=== PATIENT | male | born 1945 | race Hispanic/Latino ===

== ENCOUNTER 2019-09-24 21:02 | Emergency (ER) | payer MEDICARE ==
--- NOTE | 2019-09-24 21:41 | Emergency Department Report ---
Blank Doc - Documentation Documentation: 74-year-old male that presents with right foot pain, redness, and swelling with history of diabetes This initial assessment/diagnostic orders/clinical plan/treatment(s) is/are subject to change based on patient's health status, clinical progression and re- assessment by fellow clinical providers in the ED. Further treatment and workup at subsequent clinical providers discretion. Patient/guardians urged not to elope from the ED as their condition may be serious if not clinically assessed and managed. Initial orders include: 1- Patient sent to MAIN ED for further evaluation and treatment 2- labs
[2019-09-24 22:07] LABS: Basophils % (Auto) 0.3 % (0.0-1.8); Eosinophils # (Auto) 0.2 K/mm3 (0.0-0.4); Eosinophils % (Auto) 2.2 % (0.0-4.3); Hematocrit 39.7 % (35.5-45.6); Hemoglobin 13.8 gm/dl (11.8-15.2); Lymphocytes # (Auto) 3.3 K/mm3 (1.2-5.4); Lymphocytes % (Auto) 48.1 % (13.4-35.0); Mean Corpuscular HGB Conc 35 % (32-34); Mean Corpuscular Volume 93 fl (84-94); Monocytes # (Auto) 0.7 K/mm3 (0.0-0.8); Monocytes % (Auto) 10.1 % (0.0-7.3); Platelet Count 249 K/mm3 (140-440); Red Blood Count 4.27 M/mm3 (3.65-5.03); Red Cell Distribution Width 14.7 % (13.2-15.2)
[2019-09-24 22:23] LABS: Alanine Aminotransferase 18 units/L (7-56); BUN/Creatinine Ratio 17; Blood Urea Nitrogen 19 mg/dL (9-20); Calcium 9.3 mg/dL (8.4-10.2); Hemolysis Index 6
[2019-09-24] MEDS ORDERED: levoFLOXacin 750 MG TAB PO ONE (23:52)
[2019-09-24] MEDS ORDERED: SULFAMETHOXAZOLE/TRIMETHOPRIM 800/160MG DS TAB PO ONE (23:52)
--- NOTE | 2019-09-24 23:54 | Emergency Department Report ---
HPI - General Chief Complaint: Extremity Injury, Lower Time Seen by Provider: 09/24/19 21:40 - HPI HPI: Room 3 The patient is 74-year-old male presenting with chief complaint of right foot erythema and swelling. The patient has a history of diabetes and neuropathy and states he does not feel pain in his foot. The patient states today when he went to apply his daily lotion to the right foot he noticed redness and a blister forming over one of his toes. Patient denies any known preceding trauma. Patient denies fever or pain. The patient states he last looked at his foot yesterday when he applied his lotion but yesterday his foot appeared normal Location: [See above] Duration: [See above] Quality: [See above] Severity: [See above] Timing: [See above] Context: [See above] Modifying factors: [See above] Associated signs and symptoms: [see above] ED Past Medical Hx - Past Medical History Previous Medical History?: Yes Hx Hypertension: Yes Hx Diabetes: Yes Additional medical history: High Cholesterol, Neuropathy, - Surgical History Past Surgical History?: Yes Hx Open Heart Surgery: Yes Additional Surgical History: Left great toe amputation, right 4th toe amputation - Family History Family history: no significant - Social History Smoking Status: Never Smoker Substance Use Type: None (denies illicit drug use) - Medications Home Medications: Home Medications Medication Instructions Recorded Confirmed Last Taken Type Ciprofloxacin HCl [Ciprofloxacin 500 mg PO Q12HR #20 tab 09/25/19 Unknown Rx TAB] Sulfamethoxazole/Trimethoprim 1 each PO BID #20 tablet 09/25/19 Unknown Rx [Bactrim DS TAB] ED Review of Systems ROS: Stated complaint: RIGHT FOOT INJURY/PAIN Other details as noted in HPI Constitutional: denies: fever Eyes: denies: eye pain ENT: denies: throat pain Respiratory: no symptoms reported Cardiovascular: denies: chest pain Endocrine: no symptoms reported Gastrointestinal: denies: abdominal pain Genitourinary: denies: dysuria Skin: rash Neurological: denies: headache Physical Exam - Physical Exam Vital Signs: Vital Signs 09/24/19 21:11 Temperature 98.4 F Pulse Rate 86 Respiratory 18 Rate Blood Pressure 178/54 O2 Sat by Pulse 96 Oximetry Physical Exam: GENERAL: The patient is well-developed well-nourished male sitting on stretcher not appearing to be in acute distress. [] HEENT: Normocephalic. Atraumatic. Extraocular motions are intact. Patient has moist mucous membranes. NECK: Supple. Trachea midline CHEST/LUNGS: There is no respiratory distress noted. HEART/CARDIOVASCULAR: Regular. There is no tachycardia. 2+ right DP SKIN: There is erythema of the distal right foot encompassing the middle toes. There is an intact blister overlying the third toe. There appears to be a callus of the sole of foot which could serve as a portal of entry NEURO: The patient is awake, alert, and oriented. The patient is cooperative. The patient has normal speech MUSCULOSKELETAL: There is no evidence of acute injury. ED Course Vital Signs 09/24/19 21:11 Temperature 98.4 F Pulse Rate 86 Respiratory 18 Rate Blood Pressure 178/54 O2 Sat by Pulse 96 Oximetry ED Medical Decision Making - Lab Data Result diagrams: 09/24/19 21:46 09/24/19 21:46 Laboratory Tests 09/24/19 09/24/19 09/24/19 21:46 21:46 21:46 WBC 6.8 RBC 4.27 Hgb 13.8 Hct 39.7 MCV 93 MCH 32 MCHC 35 H RDW 14.7 Plt Count 249 Lymph % (Auto) 48.1 H [place] % (Auto) 10.1 H Eos % (Auto) 2.2 Baso % (Auto) 0.3 Lymph # 3.3 [place] # 0.7 Eos # 0.2 Baso # 0.0 Seg Neutrophils % 39.3 L Seg Neutrophils # 2.7 VBG pH 7.379 Sodium 137 Potassium 4.2 Chloride 99.5 Carbon Dioxide 23 Anion Gap 19 BUN 19 Creatinine 1.1 Estimated GFR > 60 BUN/Creatinine Ratio 17 Glucose 211 H Calcium 9.3 Total Bilirubin 0.50 AST 27 ALT 18 Alkaline Phosphatase 84 Total Protein 7.6 Albumin 4.0 Albumin/Globulin Ratio 1.1 - Radiology Data Radiology results: report reviewed (right foot x-ray), image reviewed (right foot x-ray) interpreted by me: Right foot x-ray-no acute fracture seen [facility] [address] [place] [address] XRay Report Signed Patient: FLAKO MACK MR#: [id number] : 1945 Acct:[id number] Age/Sex: 74 / M ADM Date: 09/24/19 Loc: ED Attending Dr: Ordering Physician: PAPO CANTU MD Date of Service: 09/24/19 Procedure(s): XR foot 2V RT Accession Number(s): [id number] cc: APPO CANTU MD Fluoro Time In Minutes: Right foot 2 views INDICATION: Right foot pain IMPRESSION: Amputation of the fourth toe. No convincing of osteomyelitis identified on limited views. Signer Name: Moises Gutierres MD Signed: 09/25/2019 1:19 AM Workstation Name: [id number] Transcribed By: BC Dictated By: Moises Gutierres MD Electronically Authenticated By: Moises Gutierres MD Signed Date/Time: 09/25/19118 DD/ 8 TD/TT: \ - Differential Diagnosis cellulitis Critical care attestation.: If time is entered above; I have spent that time in minutes in the direct care of this critically ill patient, excluding procedure time. ED Disposition Clinical Impression: Cellulitis of right foot Disposition: DC-01 TO HOME OR SELFCARE Is pt being admited?: No Does the pt Need Aspirin: No Condition: Stable Instructions: Cellulitis (ED) Additional Instructions: Return to the emergency department should you develop worsening symptoms, inability to tolerate food or liquids, high fever or any other concerns Prescriptions: Sulfamethoxazole/Trimethoprim [Bactrim DS TAB] 1 each PO BID #20 tablet Ciprofloxacin HCl [Ciprofloxacin TAB] 500 mg PO Q12HR #20 tab Referrals: SONIYA LUGO MD [Primary Care Provider] - 3-5 Days Time of Disposition: 01:35
--- NOTE | 2019-09-25 01:24 | XRay Report ---
Right foot 2 views INDICATION: Right foot pain IMPRESSION: Amputation of the fourth toe. No convincing of osteomyelitis identified on limited views. Signer Name: Moises Gutierres MD Signed: 09/25/2019 1:19 AM Workstation Name: [email or web address]
[2019-09-25 02:22] VITALS: BP 142/43
== END 2019-09-25 02:00 | disposition home or self-care (01) ==
LOC: ED 21:02
DX: L03.115 Cellulitis of right lower limb (principal); I10 Essential (primary) hypertension; E11.9 Type 2 diabetes mellitus without complications; E78.5 Hyperlipidemia, unspecified
CPT/HCPCS: 36415; 80053; 82805; 85025; 87040